=== PATIENT | male | born 1955 | race African-American/Black ===

== ENCOUNTER 2024-10-30 09:59 | Inpatient (IN) | payer OTHER ==
[~2024-10-30] VITALS: Ht 175.3 cm; Wt 79.4 kg
[2024-10-30 10:00] VITALS: BP 133/79
[2024-10-30 10:39] LABS: PLATELET COUNT (AUTO) 165 K/uL (152-348); RED BLOOD CELL COUNT(AUTO) 4.77 MIL/uL (4.06-5.63); RED CELL DISTRIBUTION WIDTH 15.1 % (12.1-16.2); WHITE BLOOD COUNT (AUTO) 12.3 K/uL (3.6-10.2)
[2024-10-30 10:54] LABS: CREATININE 0.9 mg/dL (0.6-1.3); SODIUM SERUM 134.0 mmol/L (136-145); UREA NITROGEN, BLOOD 13.0 mg/dL (7-18)
[2024-10-30 10:57] LABS: ASPARTATE AMINOTRANSFERASE 50 U/L (15-37); TOTAL PROTEIN, SERUM 7.3 g/dL (6.4-8.2)
[2024-10-30] MEDS ORDERED: MORPHINE SULFATE 4 MG/1 ML DISP.SYRIN ONE (11:25)
[2024-10-30] MEDS ORDERED: ONDANSETRON 4 MG/2 ML VIAL ONE (11:25)
[2024-10-30] MEDS: MORPHINE SULFATE 4 MG/1 ML DISP.SYRIN IV ONE (11:30)
[2024-10-30] MEDS: ONDANSETRON 4 MG/2 ML VIAL IV ONE (11:30)
[2024-10-30] MEDS ORDERED: diphenhydrAMINE 50 MG/1 ML VIAL ONE (11:53)
[2024-10-30] MEDS ORDERED: FENTANYL CITRATE 100 MCG/2 ML AMPUL ONE (11:54)
[2024-10-30] MEDS: diphenhydrAMINE 50 MG/1 ML VIAL IV ONE (12:18)
[2024-10-30] MEDS: FENTANYL CITRATE 100 MCG/2 ML AMPUL IV ONE (12:19)
[2024-10-30] MEDS ORDERED: REMEDY ESSENTIAL ZINC PASTE 113 GM TP PRN (13:15)
[2024-10-30] MEDS ORDERED: MAGNESIUM HYDROXIDE 30 ML LIQUID UDC PO PRN (13:15)
[2024-10-30] MEDS ORDERED: ONDANSETRON 4 MG/2 ML VIAL IV PRN (13:15)
[2024-10-30 15:20] VITALS: BP 104/68; TEMP 98.2; O2SAT 97
[2024-10-30] MEDS ORDERED: MORPHINE SULFATE 2 MG/1 ML DISP.SYRIN IV PRN (16:30)
[2024-10-30 17:00] VITALS: TEMP 100.7
[2024-10-30] MEDS: HYDROMORPHONE 1 MG/1 ML DISP.SYRIN IV ONE (17:42)
[2024-10-30] MEDS: ACETAMINOPHEN 325 MG TABLET PO PRN (17:45)
[2024-10-30] MEDS ORDERED: CEFTRIAXONE 1 G in IV DEXTROSE 5% 50 ML IV SCH (19:30)
[2024-10-30] MEDS ORDERED: AZITHROMYCIN IV 500 MG in IV DEXTROSE 5% 250 ML IV SCH (19:30)
[2024-10-30 19:40] VITALS: BP 103/66; TEMP 99.9; O2SAT 99
[2024-10-30] MEDS ORDERED: CEFTRIAXONE /D5W 50ML IVPB **ER PYXIS IV ONE (20:13)
[2024-10-30] MEDS ORDERED: AZITHROMYCIN 500MG/ D5W 250ML IVPB **ER PYXIS ONLY IV ONE (20:13)
[2024-10-30] MEDS: HYDROMORPHONE 1 MG/1 ML DISP.SYRIN IV PRN (20:27)
[2024-10-30] MEDS: CEFTRIAXONE 1 G in IV DEXTROSE 5% 50 ML IV SCH (20:27)
[2024-10-30] MEDS: ENOXAPARIN SODIUM 40 MG/0.4 ML DISP.SYRIN SQ SCH (20:28)
[2024-10-30] MEDS: AZITHROMYCIN IV 500 MG in IV DEXTROSE 5% 250 ML IV SCH (21:15)
[2024-10-30] MEDS: LORAZEPAM 2 MG/1 ML VIAL IV PRN (22:28)
[2024-10-30 22:41] VITALS: TEMP 98.6
[2024-10-31] VITALS (8 sets, daily range): BP systolic 93–119; BP diastolic 60–76; TEMP 97.8–98.9; O2SAT 92–95
[2024-10-31 06:43] LABS: PLATELET COUNT (AUTO) 155 K/uL (152-348); RED BLOOD CELL COUNT(AUTO) 4.91 MIL/uL (4.06-5.63); RED CELL DISTRIBUTION WIDTH 15.3 % (12.1-16.2); WHITE BLOOD COUNT (AUTO) 14.4 K/uL (3.6-10.2)
[2024-10-31 06:54] LABS: CREATININE 0.9 mg/dL (0.6-1.3); SODIUM SERUM 134.0 mmol/L (136-145); UREA NITROGEN, BLOOD 16.0 mg/dL (7-18)
[2024-10-31 07:51] LABS: LYMPHOCYTES % (MANUAL) 3 % (20-40); MONOCYTES % (MANUAL) 5 % (2-10); NEUTROPHILS % (MANUAL) 92 % (42-75); PLATELET ESTIMATE ADEQUATE
[2024-10-31] MEDS: PANTOPRAZOLE SODIUM 40 MG VIAL IV SCH (08:39)
[2024-10-31] MEDS: ASPIRIN 81 MG TAB.CHEW PO SCH (08:39)
[2024-10-31] MEDS: MAGNESIUM OXIDE 400 MG TABLET PO ONE (10:15)
[2024-10-31] MEDS: IV NS 1000 ML 1,000 ML IV ONE (10:56)
[2024-10-31] MEDS ORDERED: SWABABLE VALVE TRANSFER SET EA MC ONE (12:11)
[2024-10-31] MEDS ORDERED: IOHEXOL 350 100 ML INFUS..BTL ONE (12:11)
[2024-10-31] MEDS ORDERED: IV NORMAL SALINE 250 ML IV ONE (12:11)
[2024-10-31] MEDS ORDERED: LORAZEPAM 2 MG/1 ML VIAL IM PRN (17:30)
[2024-11-01] VITALS (10 sets, daily range): BP systolic 101–114; BP diastolic 62–80; TEMP 97.9–98.8; O2SAT 95–98
[2024-11-01 06:47] LABS: PLATELET COUNT (AUTO) 161 K/uL (152-348); RED BLOOD CELL COUNT(AUTO) 4.40 MIL/uL (4.06-5.63); RED CELL DISTRIBUTION WIDTH 15.1 % (12.1-16.2); WHITE BLOOD COUNT (AUTO) 15.4 K/uL (3.6-10.2)
[2024-11-01 06:56] LABS: CREATININE 0.9 mg/dL (0.6-1.3); SODIUM SERUM 136.0 mmol/L (136-145); UREA NITROGEN, BLOOD 14.0 mg/dL (7-18)
[2024-11-01] MEDS ORDERED: ALPRAZOLAM 0.25 MG TABLET PO PRN (11:00)
[2024-11-01] MEDS: IPRATROPIUM BROMIDE 0.5 MG/2.5 ML NEBU NEB SCH (13:53)
[2024-11-01] MEDS: ALBUTEROL SULFATE 2.5 MG/3 ML NEBU NEB SCH (13:53)
[2024-11-02] VITALS (13 sets, daily range): BP systolic 107–127; BP diastolic 65–75; TEMP 98–98.8; O2SAT 95–100
[2024-11-02] MEDS: PANTOPRAZOLE SODIUM 40 MG TABLET.DR PO SCH (06:37)
[2024-11-02 07:18] LABS: PLATELET COUNT (AUTO) 175 K/uL (152-348); RED BLOOD CELL COUNT(AUTO) 4.33 MIL/uL (4.06-5.63); RED CELL DISTRIBUTION WIDTH 15.3 % (12.1-16.2); WHITE BLOOD COUNT (AUTO) 11.9 K/uL (3.6-10.2)
[2024-11-02 07:30] LABS: CREATININE 0.7 mg/dL (0.6-1.3); SODIUM SERUM 135 mmol/L (136-145); UREA NITROGEN, BLOOD 9 mg/dL (7-18)
[2024-11-03] VITALS (9 sets, daily range): BP systolic 112–130; BP diastolic 69–79; TEMP 97.6–98.8; O2SAT 96–99
[2024-11-03 07:17] LABS: PLATELET COUNT (AUTO) 212 K/uL (152-348); RED BLOOD CELL COUNT(AUTO) 4.76 MIL/uL (4.06-5.63); RED CELL DISTRIBUTION WIDTH 15.2 % (12.1-16.2); WHITE BLOOD COUNT (AUTO) 6.0 K/uL (3.6-10.2)
[2024-11-03 07:42] LABS: CREATININE 0.6 mg/dL (0.6-1.3); SODIUM SERUM 139 mmol/L (136-145); UREA NITROGEN, BLOOD 6 mg/dL (7-18)
[2024-11-03 09:46] LABS: BAND % (MANUAL) 1 % (0-10); EOSINOPHILS % (MANUAL) 2 % (0-8); LYMPHOCYTES % (MANUAL) 16 % (20-40); METAMYELOCYTES % 2 % (0-1); MONOCYTES % (MANUAL) 10 % (2-10); NEUTROPHILS % (MANUAL) 69 % (42-75); PLATELET ESTIMATE ADEQUATE
[2024-11-03] MEDS ORDERED: GUAI600T53 PO (11:51)
[2024-11-03] MEDS ORDERED: AMOX-430 PO (11:51)
[2024-11-03] MEDS ORDERED: TRAM50TA2 PO (12:50)
== END 2024-11-03 16:40 | disposition home or self-care (01) | DRG 178 ==
LOC: ER 09:59 → TELE3 14:27
PROVIDERS: ADMIT Nurse Practitioner Acute Care; ATTEND Nurse Practitioner Acute Care
DX: J15.69 Pneumonia due to other Gram-negative bacteria (principal); E44.1 Mild protein-calorie malnutrition; E88.09 Other disorders of plasma-protein metabolism, not elsewhere classified; F15.90 Other stimulant use, unspecified, uncomplicated; I25.10 Atherosclerotic heart disease of native coronary artery without angina pectoris; Z96.642 Presence of left artificial hip joint; I70.201 Unspecified atherosclerosis of native arteries of extremities, right leg; M35.3 Polymyalgia rheumatica; Q82.8 Other specified congenital malformations of skin; M06.00 Rheumatoid arthritis without rheumatoid factor, unspecified site; E78.5 Hyperlipidemia, unspecified; Z88.5 Allergy status to narcotic agent; F19.10 Other psychoactive substance abuse, uncomplicated
CPT/HCPCS: 36415; 70030-TC; 71045; 71101; 71275; 83735; 84100; 84484; 85025; 85730; 87040; 93005; 93307; 94640; 94664; 94760; A4606; A4663; G0378; J0456; J0696; J1171; J1200; J1650; J2060; J2270; J2405; J2470; J3010; J3590; J7040; J7050; Q9967